=== PATIENT | male | born 1985 | race Hispanic/Latino ===

== ENCOUNTER 2022-05-21 21:49 | Inpatient (IN) | payer OTHER ==
[~2022-05-21] VITALS: Ht 175.3 cm; Wt 63.5 kg
[2022-05-21 22:37] LABS: HEMATOCRIT 40.5 % (42-54); MEAN CORPUSCULAR HEMOGLOBIN 29.8 pg (27.0-33.0); MEAN CORPUSCULAR HGB CONC 33.6 g/dL (32.0-36.0); MEAN CORPUSCULAR VOLUME 88.8 fL (79-99); PLATELET COUNT (AUTO) 273 K/uL (130-400); RED BLOOD CELL COUNT(AUTO) 4.56 MIL/uL (4.50-6.20); RED CELL DISTRIBUTION WIDTH 12.4 % (11.0-15.5); WHITE BLOOD COUNT (AUTO) 14.7 K/uL (4.8-10.8)
[2022-05-21 22:42] LABS: BASOPHILS % (AUTO) 0.4 % (0.0-5.0); EOSINOPHILS % (AUTO) 0.4 % (0.0-8.0); MONOCYTES % (AUTO) 6.4 % (3.0-13.0); NEUTROPHILS % (AUTO) 74.3 % (40.0-77.0)
[2022-05-21 22:45] LABS: CARBON DIOXIDE 30 mmol/L (21-32); CHLORIDE 105 mmol/L (101-111); GLOMERULAR FILTR. RATE CALC 91 mL/min (>60); GLUCOSE,RANDOM 83 mg/dL (70-105); POTASSIUM 3.8 mmol/L (3.5-5.1); SODIUM SERUM 145 mmol/L (136-145); UREA NITROGEN, BLOOD 9 mg/dL (7-18)
[2022-05-21 22:49] LABS: ALANINE AMINOTRANSFERASE 20 U/L (12-78); ASPARTATE AMINOTRANSFERASE 16 U/L (10-37); CREATINE KINASE, TOTAL 196 U/L (21-232); TOTAL PROTEIN, SERUM 7.6 g/dL (6.0-8.3)
[2022-05-21 22:50] LABS: CRP QUANTITATIVE < 2.00 mg/L (0.00-9.0)
[2022-05-21] MEDS ORDERED: HYDROMORPHONE 1 MG INJ IVP ONE (23:00)
[2022-05-21] MEDS ORDERED: ONDANSETRON 4MG INJ IVP ONE (23:00)
[2022-05-22] MEDS ORDERED: HYDROMORPHONE 1 MG INJ IVP ONE
[2022-05-22] MEDS ORDERED: ACETAMINOPHEN 325 MG TAB PO PRN ×2 (01:00)
[2022-05-22] MEDS ORDERED: ONDANSETRON 4MG INJ IV PRN (01:00)
[2022-05-22] MEDS: MORPHINE 2 MG SYG IV PRN ×4 (01:36→21:42)
[2022-05-22] MEDS ORDERED: KETOROLAC 30MG VIAL (30MG/ML) IM PRN (02:30)
[2022-05-22] MEDS: LACTATED RINGERS 1000ML 1,000 ML IV SCH ×2 (03:30→10:43)
[2022-05-22 04:34] LABS: BASOPHILS % (AUTO) 0.4 % (0.0-5.0); EOSINOPHILS % (AUTO) 0.3 % (0.0-8.0); LYMPHOCYTES % (AUTO) 35.1 % (21.0-51.0); MEAN CORPUSCULAR HEMOGLOBIN 29.2 pg (27.0-33.0); MEAN CORPUSCULAR HGB CONC 33.2 g/dL (32.0-36.0); MONOCYTES % (AUTO) 9.9 % (3.0-13.0); NEUTROPHILS % (AUTO) 53.9 % (40.0-77.0); PLATELET COUNT (AUTO) 271 K/uL (130-400); RED BLOOD CELL COUNT(AUTO) 4.32 MIL/uL (4.50-6.20); RED CELL DISTRIBUTION WIDTH 12.4 % (11.0-15.5)
[2022-05-22 04:41] LABS: INR 0.93 (0.85-1.15); PROTHROMBIN TIME 9.3 SEC (9.6-11.6)
[2022-05-22 04:43] LABS: PARTIAL THROMBOPLASTIN TIME 26.7 SEC (26.3-35.5)
[2022-05-22 05:00] LABS: ALBUMIN 3.7 g/dL (3.5-5.0); CREATININE 0.9 mg/dL (0.5-1.5); POTASSIUM 4.2 mmol/L (3.5-5.1); TOTAL PROTEIN, SERUM 7.2 g/dL (6.0-8.3)
[2022-05-22 06:17] LABS: ERYTHROCYTE SEDIMENTATION RATE 5 MM/HR (0-15)
[2022-05-22 08:00] VITALS: BP 105/48
[2022-05-22] MEDS ORDERED: HYDROCODONE/ACETAMINOPHEN 5/325 MG TAB PO PRN (08:00)
[2022-05-22] MEDS ORDERED: KETOROLAC 30MG VIAL (30MG/ML) IV PRN (08:30)
[2022-05-22] MEDS ORDERED: FAMOTIDINE 20MG VIAL IV SCH (09:00)
[2022-05-22] MEDS: CEFAZOLIN SODIUM 1 GM VIAL IVPB SCH ×2 (10:43→18:05)
[2022-05-22 12:00] VITALS: BP 126/72
[2022-05-22] MEDS: KETOROLAC 15MG/ML VIAL (15MG/ML) IV PRN ×2 (13:57→21:41)
[2022-05-22] MEDS: PANTOPRAZOLE 40 MG/VIAL IVP SCH (14:00)
[2022-05-22 16:00] VITALS: BP 111/62
[2022-05-22 20:00] VITALS: BP 150/76
[2022-05-23] VITALS (7 sets, daily range): BP systolic 118–149; BP diastolic 60–84
[2022-05-23] MEDS: CEFAZOLIN SODIUM 1 GM VIAL IVPB SCH ×3 (03:30→17:26)
[2022-05-23] MEDS: MORPHINE 2 MG SYG IV PRN ×3 (03:34→21:25)
[2022-05-23] MEDS: KETOROLAC 15MG/ML VIAL (15MG/ML) IV PRN ×2 (05:18→13:45)
[2022-05-23 06:16] LABS: BASOPHILS % (AUTO) 0.5 % (0.0-5.0); EOSINOPHILS % (AUTO) 2.1 % (0.0-8.0); HEMATOCRIT 35.7 % (42-54); LYMPHOCYTES % (AUTO) 52.6 % (21.0-51.0); MEAN CORPUSCULAR HEMOGLOBIN 29.3 pg (27.0-33.0); MEAN CORPUSCULAR HGB CONC 32.8 g/dL (32.0-36.0); MEAN CORPUSCULAR VOLUME 89.3 fL (79-99); MONOCYTES % (AUTO) 10.2 % (3.0-13.0); NEUTROPHILS % (AUTO) 34.2 % (40.0-77.0); PLATELET COUNT (AUTO) 209 K/uL (130-400); RED CELL DISTRIBUTION WIDTH 12.7 % (11.0-15.5); WHITE BLOOD COUNT (AUTO) 7.3 K/uL (4.8-10.8)
[2022-05-23 06:33] LABS: ALBUMIN 2.9 g/dL (3.5-5.0); CREATININE 0.9 mg/dL (0.5-1.5); MAGNESIUM 1.8 mg/dL (1.80-2.40); POTASSIUM 4.1 mmol/L (3.5-5.1); TOTAL PROTEIN, SERUM 5.9 g/dL (6.0-8.3)
[2022-05-23] MEDS: PANTOPRAZOLE 40 MG/VIAL IVP SCH (10:00)
[2022-05-23] MEDS: LACTATED RINGERS 1000ML 1,000 ML IV SCH (13:45)
[2022-05-24] VITALS (25 sets, daily range): BP systolic 116–144; BP diastolic 47–85
[2022-05-24] MEDS: KETOROLAC 15MG/ML VIAL (15MG/ML) IV PRN (00:53)
[2022-05-24] MEDS: LACTATED RINGERS 1000ML 1,000 ML IV SCH ×2 (01:09→14:50)
[2022-05-24] MEDS: CEFAZOLIN SODIUM 1 GM VIAL IVPB SCH ×2 (02:26→09:27)
[2022-05-24 07:03] LABS: BASOPHILS % (AUTO) 0.3 % (0.0-5.0); EOSINOPHILS % (AUTO) 2.6 % (0.0-8.0); HEMATOCRIT 34.6 % (42-54); LYMPHOCYTES % (AUTO) 43.9 % (21.0-51.0); MEAN CORPUSCULAR HEMOGLOBIN 29.3 pg (27.0-33.0); MEAN CORPUSCULAR HGB CONC 33.2 g/dL (32.0-36.0); MONOCYTES % (AUTO) 10.5 % (3.0-13.0); NEUTROPHILS % (AUTO) 42.4 % (40.0-77.0); PLATELET COUNT (AUTO) 240 K/uL (130-400); RED BLOOD CELL COUNT(AUTO) 3.93 MIL/uL (4.50-6.20); RED CELL DISTRIBUTION WIDTH 12.3 % (11.0-15.5); WHITE BLOOD COUNT (AUTO) 6.8 K/uL (4.8-10.8)
[2022-05-24 07:16] LABS: CREATININE 0.8 mg/dL (0.5-1.5); MAGNESIUM 1.8 mg/dL (1.80-2.40); POTASSIUM 3.8 mmol/L (3.5-5.1); TOTAL PROTEIN, SERUM 6.2 g/dL (6.0-8.3)
[2022-05-24] MEDS: PANTOPRAZOLE 40 MG/VIAL IVP SCH (09:27)
[2022-05-24] MEDS ORDERED: ROPIVACAINE 0.5% 5MG/ML 30ML IJ ONE (12:57)
[2022-05-24] MEDS ORDERED: MIDAZOLAM HCL 1 MG/ML 2ML VIAL ONE ×3 (15:14→17:38)
[2022-05-24] MEDS ORDERED: SUCCINYLCHOLINE 200MG/10ML SYR ONE (15:28)
[2022-05-24] MEDS ORDERED: PROPOFOL 10 MG/ML 20ML VIAL IV ONE (15:28)
[2022-05-24] MEDS ORDERED: ROCURONIUM 10MG/1ML SYR 10 MG/ML ML ONE (15:29)
[2022-05-24] MEDS ORDERED: FENTANYL CITRATE PF 50 MCG/1 ML 2ML VIAL ONE ×2 (15:40→17:38)
[2022-05-24] MEDS ORDERED: GLYCOPYRROLATE 1 MG/5 ML SYRINGE ONE (17:15)
[2022-05-24] MEDS ORDERED: NEOSTIGMINE 5MG/5ML SYR IV ONE (17:15)
[2022-05-24] MEDS ORDERED: MEPERIDINE-PF 25 MG/ML SYG ONE ×2 (17:29→17:33)
[2022-05-24] MEDS ORDERED: KETOROLAC 30MG VIAL (30MG/ML) ONE (17:36)
[2022-05-24] MEDS ORDERED: HYDROMORPHONE 1 MG INJ ONE (18:16)
[2022-05-24] MEDS ORDERED: HYDROCODONE/ACETAMINOPHEN 10/325 MG TAB ONE (18:44)
[2022-05-24] MEDS: MORPHINE 2 MG SYG IV PRN ×2 (19:08→23:19)
[2022-05-24] MEDS ORDERED: HYDROCODONE/ACETAMINOPHEN 5/325 MG TAB PO PRN (20:00)
[2022-05-24] MEDS: HYDROCODONE/ACETAMINOPHEN 10/325 MG TAB PO PRN (20:47)
[2022-05-24] MEDS: CEFAZOLIN SODIUM 2 GM VIAL IVP SCH (22:18)
[2022-05-25 00:21] VITALS: BP 141/68
[2022-05-25 00:45] VITALS: BP 141/68
[2022-05-25] MEDS: HYDROCODONE/ACETAMINOPHEN 10/325 MG TAB PO PRN ×2 (01:14→06:43)
[2022-05-25] MEDS: LACTATED RINGERS 1000ML 1,000 ML IV SCH ×2 (04:10→10:28)
[2022-05-25 04:15] VITALS: BP 129/70
[2022-05-25 05:05] LABS: BASOPHILS % (AUTO) 0.3 % (0.0-5.0); HEMATOCRIT 34.7 % (42-54); LYMPHOCYTES % (AUTO) 36.8 % (21.0-51.0); MEAN CORPUSCULAR HEMOGLOBIN 29.4 pg (27.0-33.0); MEAN CORPUSCULAR HGB CONC 33.4 g/dL (32.0-36.0); MEAN CORPUSCULAR VOLUME 87.8 fL (79-99); MONOCYTES % (AUTO) 9.7 % (3.0-13.0); NEUTROPHILS % (AUTO) 50.9 % (40.0-77.0); PLATELET COUNT (AUTO) 271 K/uL (130-400); RED BLOOD CELL COUNT(AUTO) 3.95 MIL/uL (4.50-6.20); RED CELL DISTRIBUTION WIDTH 12.1 % (11.0-15.5); WHITE BLOOD COUNT (AUTO) 8.7 K/uL (4.8-10.8)
[2022-05-25] MEDS: CEFAZOLIN SODIUM 2 GM VIAL IVP SCH ×2 (05:22→23:45)
[2022-05-25] MEDS: MORPHINE 2 MG SYG IV PRN (05:24)
[2022-05-25 05:40] LABS: ALBUMIN 3.2 g/dL (3.5-5.0); CREATININE 0.7 mg/dL (0.5-1.5); MAGNESIUM 1.8 mg/dL (1.80-2.40); TOTAL PROTEIN, SERUM 6.5 g/dL (6.0-8.3)
[2022-05-25 08:00] VITALS: BP 127/66
[2022-05-25] MEDS: HYDROMORPHONE 1 MG INJ IVP PRN ×3 (09:14→19:54)
[2022-05-25 11:00] VITALS: BP 156/90
[2022-05-25] MEDS: PANTOPRAZOLE 40 MG/VIAL IVP SCH (11:32)
[2022-05-25] MEDS: ENOXAPARIN SODIUM 40 MG/0.4 ML SYRINGE SQ SCH (11:37)
[2022-05-25] MEDS: KETOROLAC 15MG/ML VIAL (15MG/ML) IV PRN (11:46)
[2022-05-25 16:00] VITALS: BP 117/72
[2022-05-25] MEDS ORDERED: KETOROLAC 30MG VIAL (30MG/ML) IV ONE (22:00)
[2022-05-25] MEDS ORDERED: LACTATED RINGERS 1000ML IV ONE (22:00)
[2022-05-26] VITALS (7 sets, daily range): BP systolic 117–131; BP diastolic 59–84
[2022-05-26] MEDS: HYDROMORPHONE 1 MG INJ IVP PRN ×5 (00:08→14:10)
[2022-05-26] MEDS: CEFAZOLIN SODIUM 2 GM VIAL IVP SCH ×3 (06:25→22:12)
[2022-05-26] MEDS: LACTATED RINGERS 1000ML 1,000 ML IV SCH (06:50)
[2022-05-26] MEDS: ENOXAPARIN SODIUM 40 MG/0.4 ML SYRINGE SQ SCH (09:05)
[2022-05-26] MEDS: PANTOPRAZOLE 40 MG/VIAL IVP SCH (11:55)
[2022-05-26] MEDS ORDERED: HYDROCODONE/ACETAMINOPHEN 5/325 MG TAB PO PRN (15:00)
[2022-05-26] MEDS ORDERED: HYDROMORPHONE 1 MG INJ IVP PRN (15:00)
[2022-05-26] MEDS: HYDROCODONE/ACETAMINOPHEN 10/325 MG TAB PO PRN ×2 (15:24→22:14)
[2022-05-27 04:05] VITALS: BP 113/59
[2022-05-27] MEDS: CEFAZOLIN SODIUM 2 GM VIAL IVP SCH (05:24)
[2022-05-27] MEDS: LACTATED RINGERS 1000ML 1,000 ML IV SCH (05:24)
[2022-05-27] MEDS: HYDROCODONE/ACETAMINOPHEN 10/325 MG TAB PO PRN ×2 (05:25→11:58)
[2022-05-27 05:46] LABS: BASOPHILS % (AUTO) 0.4 % (0.0-5.0); EOSINOPHILS % (AUTO) 2.7 % (0.0-8.0); HEMATOCRIT 32.7 % (42-54); LYMPHOCYTES % (AUTO) 43.8 % (21.0-51.0); MEAN CORPUSCULAR HEMOGLOBIN 29.4 pg (27.0-33.0); MEAN CORPUSCULAR HGB CONC 33.6 g/dL (32.0-36.0); MEAN CORPUSCULAR VOLUME 87.4 fL (79-99); MONOCYTES % (AUTO) 10.7 % (3.0-13.0); NEUTROPHILS % (AUTO) 41.9 % (40.0-77.0); PLATELET COUNT (AUTO) 280 K/uL (130-400); RED BLOOD CELL COUNT(AUTO) 3.74 MIL/uL (4.50-6.20); RED CELL DISTRIBUTION WIDTH 12.5 % (11.0-15.5); WHITE BLOOD COUNT (AUTO) 7.5 K/uL (4.8-10.8)
[2022-05-27 05:53] LABS: CREATININE 0.8 mg/dL (0.5-1.5); MAGNESIUM 1.7 mg/dL (1.80-2.40); PHOSPHORUS 3.7 mg/dL (2.5-4.9); POTASSIUM 4.2 mmol/L (3.5-5.1)
[2022-05-27 08:00] VITALS: BP 114/65
[2022-05-27] MEDS: ENOXAPARIN SODIUM 40 MG/0.4 ML SYRINGE SQ SCH (09:39)
[2022-05-27] MEDS: KETOROLAC 15MG/ML VIAL (15MG/ML) IV PRN (09:41)
[2022-05-27] MEDS: PANTOPRAZOLE 40 MG/VIAL IVP SCH (11:57)
[2022-05-27 12:00] VITALS: BP 130/71
== END 2022-05-27 13:15 | disposition home or self-care (01) | DRG 494 ==
LOC: EDH 21:49 → EDHIP 21:50 → 4BH 05-22 01:30
PROVIDERS: ADMIT Hospitalist; ATTEND Hospitalist
PROC: 0QSH04Z Reposition Left Tibia with Internal Fixation Device, Open Approach (ICD-10-PCS; principal; 2022-05-25)
DX: S82.292A Other fracture of shaft of left tibia, initial encounter for closed fracture (principal); F12.90 Cannabis use, unspecified, uncomplicated; G47.00 Insomnia, unspecified; Z20.822 Contact with and (suspected) exposure to COVID-19; K59.00 Constipation, unspecified; W18.39XA Other fall on same level, initial encounter; Y93.89 Activity, other specified; Y92.89 Other specified places as the place of occurrence of the external cause; Y99.8 Other external cause status
CPT/HCPCS: 36415; 73590; 80048; 80053; 82550; 83735; 84100; 85025; 85610; 85651; 85730; 86140; 87040; 87635; 97039; C9113; G0378; J0330; J0690; J1170; J1650; J1885; J2175; J2250; J2405; J2704; J2710; J2795; J3010; J3490; J7030; J7120

== ENCOUNTER 2022-06-11 10:40 | Emergency (ER) | payer OTHER ==
[~2022-06-11] VITALS: Ht 177.8 cm; Wt 65.8 kg
[2022-06-11 10:48] VITALS: BP 162/75
== END 2022-06-11 11:30 | disposition home or self-care (01) ==
LOC: EDH 10:40
DX: S81.812D Laceration without foreign body, left lower leg, subsequent encounter (principal); X58.XXXD Exposure to other specified factors, subsequent encounter
CPT/HCPCS: 99281